=== PATIENT | female | born 1995 ===

== ENCOUNTER 2018-03-31 08:26 | Day surgery (SDC) | payer OTHER ==
[2018-03-31] VITALS (11 sets, daily range): BP systolic 85–128; BP diastolic 45–79
[~2018-03-31] VITALS: Ht 152.4 cm; Wt 48.1 kg
--- NOTE | 2018-03-31 07:56 | Pre-Procedure Note/Attestation ---
Pre-Procedure Note/Attestation Complete Prior to Procedure Planned Procedure: left Procedure Narrative: knee arthroscopy, possible mensectomy, possible synovectomy Indications for Procedure Pre-Operative Diagnosis: left knee interal derangement Attestation I attest that I discussed the nature of the procedure; its benefits; risks and complications; and alternatives (and the risks and benefits of such alternatives ), prior to the procedure, with the patient (or the patient's legal sales representative metals). I attest that, if there was a reasonable possibility of needing a blood transfusion, the patient (or the patient's legal sales representative metals) was given the [facility] standardized written summary, pursuant to the Jasvir Pegram Blood Safety Act ([place] [facility] and Safety Code # 1645, as amended). I attest that I re-evaluated the patient just prior to the surgery and that there has been no change in the patient's H&P, except as documented below: Trey Stevens MD Mar 31, 2018 07:56
--- NOTE | 2018-03-31 07:57 | Operative Note - PDOC ---
Operative Note Operative Note Pre-op Diagnosis: left knee interal derangement Procedure: see op report Post-op Diagnosis: same as pre-op plus Operative Findings: consistent w/pre-op dx studies Anesthesia: MAC Specimen: none Complications: none Condition: stable Estimated Blood Loss: none Implant(s) used?: No Trey Stevens MD Mar 31, 2018 07:57
[~2018-03-31 08:26] MED LIST: ceFAZolin 1gm IVPB IVPB ONE; celeBREX 200mg Cap **SURGERY PATIENTS ONLY ORAL ONE; oxyCONTIN 20mg tab ORAL ONE
[2018-03-31] MEDS ORDERED: celeBREX 200mg Cap **SURGERY PATIENTS ONLY ORAL ONE (09:53)
[2018-03-31] MEDS ORDERED: oxyCONTIN 20mg tab ORAL ONE (09:53)
[2018-03-31] MEDS ORDERED: Ketorolac 30mg Inj ONE (13:30)
[2018-03-31] MEDS ORDERED: NS Irrig 4000ml IRRIG ONE (13:30)
[2018-03-31] MEDS ORDERED: Bupivacaine w/Epi 0.25% 30ml Vial INJ ONE (13:30)
[2018-03-31] MEDS ORDERED: Bupivacaine 0.5% Inj 30 ml vial INJ ONE (13:30)
[2018-03-31] MEDS ORDERED: NS Irrig 1000ml ONE (13:30)
[2018-03-31] MEDS ORDERED: Lidocaine 1% 10mg/ml/Epi 0.005mg/ml 30ml vial INJ ONE (13:30)
[2018-03-31] MEDS ORDERED: Morphine Sulfate PF 10 ML ONE (13:30)
[2018-03-31] MEDS ORDERED: Kenalog-40 1ml Vial ONE (13:30)
[2018-03-31] MEDS ORDERED: Midazolam 2mg/2ml Inj ONE (13:41)
[2018-03-31] MEDS ORDERED: fentaNYL 100 mcg/2 mL IV ONE (13:41)
[2018-03-31] MEDS ORDERED: Propofol 200mg/20ml IV ONE (13:43)
[2018-03-31] MEDS ORDERED: Dexamethasone 4mg/ml vial ONE (13:43)
[2018-03-31] MEDS ORDERED: Lidocaine 1% MPF 10mg/ml 5ml ONE (13:43)
[2018-03-31] MEDS ORDERED: Duramorph PF 10mg/10ml amp IV ONE (13:56)
[2018-03-31] MEDS ORDERED: LR 1000ml 1,000 ML IVLG SCH (14:01)
--- NOTE | 2018-03-31 14:11 | Anethesia Preoperative Eval ---
Anesthesia Pre-op PMH/ROS General Date of Evaluation: Mar 31, 2018 Time of Evaluation: 13:39 Anesthesiologist: Zaira ASA Score: ASA 1 Mallampati Score Class I : Soft palate, uvula, fauces, pillars visible Class II: Soft palate, uvula, fauces visible Class III: Soft palate, base of uvula visible Class IV: Only hard plate visible Mallampati Classification: Class I Surgeon: Stevens Diagnosis: L Knee Pain Surgical Procedure: L Knee Arthroscopy Anesthesia History: none Family History: no anesthesia problems Allergies: Coded Allergies: No Known Allergies (Unverified , 03/30/18) Medications: see eMAR Patient NPO?: Yes NPO Date: Mar 30, 2018 NPO Time: 1900 Past Medical History Neurologic/Psychiatric: Reports: other - Migranes Anesthesia Pre-op Phys. Exam Physician Exam Last Vital Signs Date Time Temp Pulse Resp B/P (MAP) Pulse Ox O2 Delivery O2 Flow Rate FiO2 03/31/18 10:10 98.3 93 22 128/79 100 Room Air Constitutional: NAD Neurologic: CN 2-12 intact Cardiovascular: RRR Respiratory: CTA Gastrointestinal: S/NT/ND Airway Exam Mallampati Score: Class I MO: full ROM: full Teeth: intact Anesthesia Pre-op A/P Labs Urine Test Test 03/31/18 08:45 Urine HCG, Qualitative Negative (NEGATIVE) Risk Assessment & Plan Assessment: ASA 1 Plan: GA, SED Status Change Before Surgery: No Pre-Antibiotics Dru Gram Ancef IV Given Within 1 Hr of Incision: Yes Time Given: 13:51 Chad Meneses MD Mar 31, 2018 14:11
--- NOTE | 2018-03-31 14:12 | Immediate Post-Op Evaluation ---
Immediate Post-Op Evalulation Immediate Post-Op Evalulation Procedure: L Knee Arthroscopy Date of Evaluation: Mar 31, 2018 Time of Evaluation: 14:49 IV Fluids: 800 LR Blood Products: 0 Estimated Blood Loss: 10 Urinary Output: 0 Blood Pressure Systolic: 85 Blood Pressure Diastolic: 44 Pulse Rate: 78 Respiratory Rate: 16 O2 Sat by Pulse Oximetry: 100 Temperature (Fahrenheit): 97.6 Pain Score (1-10): 2 Nausea: No Vomiting: No Complications 0 Patient Status: awake, reacts, patent, extubated, none Hydration Status: adequate Dru Gram Ancef IV Given Within 1 Hr of Incision: Yes Time Given: 13:51 Chad Meneses MD Mar 31, 2018 14:12
--- NOTE | 2018-03-31 14:13 | 48 Hour Post Anesthesia Eval ---
Post Anesthesia Evaluation Procedure: L Knee Arthroscopy Date of Evaluation: Mar 31, 2018 Time of Evaluation: 16:52 Blood Pressure Systolic: 107 0: 67 Pulse Rate: 72 Respiratory Rate: 18 Temperature (Fahrenheit): 97.6 O2 Sat by Pulse Oximetry: 100 Airway: patent Nausea: No Vomiting: No Pain Intensity: 0 Hydration Status: adequate Cardiopulmonary Status: Stable Mental Status/LOC: patient returned to baseline Follow-up Care/Observations: 0 Post-Anesthesia Complications: 0 Follow-up care needed: ready to discharge Chad Meneses MD Mar 31, 2018 14:13
[2018-03-31] MEDS ORDERED: Ketorolac 30mg Inj IV PRN ×2 (14:15)
[2018-03-31] MEDS ORDERED: Hydromorphone 0.5mg/0.5ml inj IVP PRN (14:15)
[2018-03-31] MEDS ORDERED: LORazepam Inj 2mg/ml 1ml IV PRN (14:15)
[2018-03-31] MEDS ORDERED: Meperidine 50mg/ml Inj(FOR RIGORS ONLY) IVP PRN (14:15)
[2018-03-31] MEDS ORDERED: Norco 5mg/325mg tab ORAL PRN ×2 (14:15→20:01)
[2018-03-31] MEDS ORDERED: oxyCODONE HCL/Acetaminophen 5/325mg ORAL PRN (14:15)
[2018-03-31] MEDS ORDERED: Atropine Sulfate 0.4mg/ml inj IVP PRN (14:15)
[2018-03-31] MEDS ORDERED: fentaNYL 100 mcg/2 mL IV PRN (14:15)
[2018-03-31] MEDS ORDERED: Metoclopramide 10mg/2ml Inj IVP PRN (14:15)
[2018-03-31] MEDS ORDERED: Midazolam 2mg/2ml Inj IVP PRN (14:15)
[2018-03-31] MEDS ORDERED: HYDROcodone/Acetamin 7.5/325 tab ORAL PRN (14:15)
[2018-03-31] MEDS ORDERED: DiphenhydrAMINE 50mg/ml Inj IVP PRN (14:15)
--- NOTE | 2018-03-31 19:30 | Operative Note - Dictated ---
PREOPERATIVE DIAGNOSIS: Left knee internal derangement. 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 ANESTHESIA: General. PROCEDURE: 1. Left knee diagnostic arthroscopy. 2. Left knee medial, lateral, and patellofemoral synovectomy/excision of fat pad. SURGEON: Trey Stevens M.D. INDICATION FOR PROCEDURE: The patient is a pleasant female who had a significant injury to her left knee. She continued to hace significant pain and mechanical symptoms. She had MRI, which showed some intrameniscal degeneration in the meniscus with some edema in the medial femoral condyle. She failed conservative treatment therefore elected to undergo left knee diagnostic arthroscopy and possible synovectomy, meniscectomy, chondroplasty. Risks, limitations, expectations, and complications related to the procedure were discussed in detail. All questions addressed. DESCRIPTION OF PROCEDURE: After informed consent was obtained. The patient brought to the operating room and placed under monitored anesthesia control. Left leg was prepped and draped in a sterile manner. Time-out was performed. An inferolateral stab incision was then made. Trocar was introduced into the patellofemoral compartment. Of note, there was significant resistance getting through the lateral gutter. There was significant hypertrophic synovial tissue as well as the fat pad making visualization patellofemoral compartment difficult. Medial compartment was entered. The medial compartment had no evidence of meniscal or chondral damage. There was hypertrophic fat pad and synovial tissue in the medial intercondylar notch and the lateral compartment. Complete synovectomy/excision of the fat pad was completed. Once that was done, the ACL was probed and noted to be intact. Lateral compartment was entered free meniscal or chondral damage. Camera was then repositioned in the patellofemoral compartment. Synovectomy was completed. Once that was done, the instruments were removed. Portal sites were closed using 3-0 Monocryl sutures. Steri-Strips and a sterile dressing were applied. The patient was awoken and taken to recovery room with stable vital signs. ESTIMATED BLOOD LOSS: None. COMPLICATIONS: None. SPECIMENS: None. IMPLANTS: None. Trey Stevens M.D. DR: Meghna JOB#: [id number] CC: RIAZ
[2018-03-31] MEDS ORDERED: HYDROmorphone 1mg/ml Carpuject SUBQ PRN (20:01)
[2018-03-31] MEDS ORDERED: D5 1/2NS 1,000 ML IV SCH (20:01)
[2018-03-31] MEDS ORDERED: Tylenol #3 tab (300mg/30mg) ORAL PRN (20:01)
== END 2018-03-31 16:00 | disposition home or self-care (01) ==
LOC: SUR 08:26
DX: M23.92 Unspecified internal derangement of left knee (principal); M79.4 Hypertrophy of (infrapatellar) fat pad; F41.9 Anxiety disorder, unspecified
CPT/HCPCS: 29876; 81025; J0690; J1100; J1885; J2250; J2274; J2405; J2704; J3010; J3301; J3490; 94003; 94150